=== PATIENT | female | born 1955 | race Caucasian/White ===

== ENCOUNTER 2018-06-06 08:50 | Day surgery (SDC) | payer OTHER ==
[~2018-06-06] VITALS: Ht 162.6 cm; Wt 74.8 kg
[~2018-06-06 08:50] MED LIST: ESCITALOPRAM OX20 MG PO; URSODIOL500 MG PO
--- NOTE | 2018-06-06 11:11 | NUR ---
06/06/18 1111 Mildred Gomez 1102 PATIENT ARRIVES TO PACU UNRESPONSIVE TO VERBAL STIMULI. RESP EVEN AND UNLABORED, MASK AT 6 LITERS, ORAL AIRWAY IN PLACE.
[2018-06-06] MEDS ORDERED: NORCO 5-325 TA1 EACH PO (11:55)
--- NOTE | 2018-06-06 12:35 | NUR ---
PT UP TO BR W/RN STANDBY. PT AMBULATES WELL, VOIDS AND DC INSTRUCTIONS ARE GIVEN. PT DRESSING SELF IN ANTICIPATION OF THE ARRIVAL OF HER RIDE. SHE WILL PUSH THE CALL LIGHT WHEN HER RIDE ARRIVES.
--- NOTE | 2018-06-06 13:47 | NUR ---
LE 1300: PT TRANSFERS SELF TO AND THEN PERSONAL VEHICLE AND DOES SO WELL.
--- NOTE | 2018-06-13 13:33 | OR ---
[facility] [address] [place], [place] [address] Signed DATE OF OPERATION: 06/06/2018 SURGEON: Mark Santiago MD PREOPERATIVE DIAGNOSIS: Left neck mass. POSTOPERATIVE DIAGNOSIS: Left neck mass. PROCEDURE: Excision of left neck mass. ANESTHESIA: General orotracheal. Smith MARMOLEJO. PREOPERATIVE HISTORY: Norah is a 62-year-old lady with a left neck mass for several months. This is in the left upper neck just superior to the jugular digastric area. She was taken to the operating room for the above-mentioned procedures. OPERATIVE PROCEDURE AND FINDINGS: After informed consent, the patient was taken to the operating room, placed in supine position where general orotracheal anesthesia was induced. The patient and procedure were verified. A shoulder roll placed. Head turned to the right. Left neck was sterilely prepped and draped. The mass in question was about 2 cm, 2.5 cm in greatest diameter, firm, deep anterior to the SCM just inferior to the angle of the mandible. After sterile prep and drape, a transverse incision was drawn several centimeters inferior to the mandible just to the inferior edge of the mass. A 1% lidocaine with epi was injected in the skin. Incision was made, carried through skin, subcutaneous tissue, sub-platysma, immediately beneath the platysma identified dark purplish mass. Soft tissue was dissected free. It was densely closely adherent to an anterior facial vein, which was preserved. The mass was then removed completely with blunt and sharp dissection. Blood vessels clamped, divided, and tied with 3-0 silk. The mass was then sent to pathology in saline. Bleeding points controlled with cautery and hemostasis was verified. After the procedure, the wound was copiously lavaged with saline. The wound was then closed with multiple layers of 4-0 interrupted Vicryl in the platysma, subcutaneous layers, and jay in the skin. The skin was cleansed. Neosporin was applied. The patient was then awakened, extubated, transported to recovery room in good condition. Electronically Signed By: MARK SANTIAGO MD 06/13/18 1333 PATIENT NAME: NORAH HUNTER OPERATIVE REPORT DATE OF : 57 REPORT #: [id number] PHYSICIAN: MARK SANTIAGO MD PCP: [facility] REPORT IS CONFIDENTIAL AND NOT TO BE RELEASED WITHOUT AUTHORIZATION [address] [address] Signed COMPLICATIONS: No complications. BLOOD LOSS: Minimal. SPECIMENS: Specimen to pathology. DRAINS: No drains. Mark Santiago MD GC/JOANNL /[id number] Copies: ~ Electronically Signed By: MARK SANTIAGO MD 06/13/18 1333 PATIENT NAME: NORAH HUNTER OPERATIVE REPORT DATE OF : 57 REPORT #: [id number] PHYSICIAN: MARK SANTIAGO MD PCP: [facility] REPORT IS CONFIDENTIAL AND NOT TO BE RELEASED WITHOUT AUTHORIZATION
== END 2018-06-06 13:00 | disposition home or self-care (01) ==
LOC: OPS 08:50 → DS 08:50 → OPS 10:00
PROVIDERS: Otolaryngology
PROC: 0KB30ZZ Excision of Left Neck Muscle, Open Approach (ICD-10-PCS; principal; 2018-06-06 10:00)
DX: R22.1 Localized swelling, mass and lump, neck (principal); K74.5 Biliary cirrhosis, unspecified; F32.9 Major depressive disorder, single episode, unspecified; Z88.4 Allergy status to anesthetic agent; Z79.899 Other long term (current) drug therapy
CPT/HCPCS: 00300; J0330; J1100; J1885; J2250; J2405; J2704; J2765; J3010; J7120